=== PATIENT | male | born 1950 | race Caucasian/White ===

== ENCOUNTER 2016-10-08 23:48 | Emergency (ER) | payer MEDICARE, OTHER ==
[2016-10-09 00:11] LABS: HEMOGLOBIN 15.1 gm/dl (14.0-17.5); RED BLOOD COUNT 4.52 M/UL (4.20-5.50); WHITE BLOOD COUNT 10.2 K/UL (4.5-11.0)
[2016-10-09 01:00] LABS: BUN/CREATININE RATIO 16 (0-10)
== END 2016-10-09 03:40 | disposition home or self-care (01) ==
LOC: ER1 23:48
PROVIDERS: Emergency Medicine
DX: R13.10 Dysphagia, unspecified (principal); R06.2 Wheezing; R06.02 Shortness of breath; I11.0 Hypertensive heart disease with heart failure; I50.9 Heart failure, unspecified; J44.9 Chronic obstructive pulmonary disease, unspecified; F17.200 Nicotine dependence, unspecified, uncomplicated; Z79.899 Other long term (current) drug therapy
CPT/HCPCS: 36415; 36600; 71010; 80053; 82550; 82553; 82803; 83690; 83874; 83880; 84484; 85025; 93005; 96374; 99285; J1100

== ENCOUNTER 2021-06-30 19:54 | Inpatient (IN) | payer MEDICARE, OTHER ==
[~2021-06-30] VITALS: Ht 188 cm; Wt 106.6 kg
[2021-06-30 20:09] LABS: HEMOGLOBIN 12.5 gm/dl (14.0-17.5); RED BLOOD COUNT 3.72 M/UL (4.20-5.50)
[2021-06-30 20:35] LABS: BUN/CREATININE RATIO 20 (0-10)
[2021-07-01] MEDS ORDERED: ALBUTEROL2.5 MG/3 M INH (10:05)
[2021-07-01] MEDS ORDERED: AMLODIPINE BESY10 MG PO (10:06)
[2021-07-01] MEDS ORDERED: BACLOFEN20 MG PO (10:06)
[2021-07-01] MEDS ORDERED: DICLOFENAC SODI75 MG PO (10:07)
[2021-07-01] MEDS ORDERED: HYDROCODON-ACE1 EAC6 PO (10:08)
[2021-07-01] MEDS ORDERED: FAMOTIDINE20 MG PO (10:08)
[2021-07-01] MEDS ORDERED: LEVOTHYROXINE100 MCG PO (10:09)
[2021-07-01] MEDS ORDERED: ZESTORETIC 20-1 EACH PO (10:09)
[2021-07-01] MEDS ORDERED: VASCEPA1 GM PO (10:09)
[2021-07-01] MEDS ORDERED: LORATADINE10 MG PO (10:10)
[2021-07-01] MEDS ORDERED: METOPROLOL TART50 MG PO (10:10)
[2021-07-01] MEDS ORDERED: ROBAXIN 750 MG750 MG PO (10:10)
[2021-07-01] MEDS ORDERED: ASPIRIN325 MG PO (10:11)
[2021-07-01] MEDS ORDERED: PRAVASTATIN SOD20 MG PO (10:11)
[2021-07-01] MEDS ORDERED: MONTELUKAST SOD10 MG PO (10:11)
[2021-07-01] MEDS ORDERED: VITAMIN D21250 MCG PO (10:12)
[2021-07-01] MEDS ORDERED: SUCRALFATE1 GM PO (10:12)
[2021-07-01] MEDS ORDERED: LIPOFLAVOVIT PO (10:13)
[2021-07-01 11:24] LABS: HEMOGLOBIN 12.6 gm/dl (14.0-17.5); RED BLOOD COUNT 3.75 M/UL (4.20-5.50); WHITE BLOOD COUNT 10.9 K/UL (4.5-11.0)
[2021-07-02 00:44] LABS: HEMOGLOBIN 10.8 gm/dl (14.0-17.5)
[2021-07-02 00:45] LABS: RED BLOOD COUNT 3.35 M/UL (4.20-5.50); WHITE BLOOD COUNT 14.6 K/UL (4.5-11.0)
[2021-07-02 06:54] LABS: RED BLOOD COUNT 3.33 M/UL (4.20-5.50); WHITE BLOOD COUNT 11.6 K/UL (4.5-11.0)
[2021-07-03 03:31] LABS: HEMOGLOBIN 11.1 gm/dl (14.0-17.5); RED BLOOD COUNT 3.36 M/UL (4.20-5.50); WHITE BLOOD COUNT 12.5 K/UL (4.5-11.0)
[2021-07-04 03:28] LABS: HEMOGLOBIN 10.8 gm/dl (14.0-17.5); RED BLOOD COUNT 3.28 M/UL (4.20-5.50); WHITE BLOOD COUNT 11.7 K/UL (4.5-11.0)
[2021-07-05 06:30] LABS: HEMOGLOBIN 10.4 gm/dl (14.0-17.5); RED BLOOD COUNT 3.18 M/UL (4.20-5.50); WHITE BLOOD COUNT 12.6 K/UL (4.5-11.0)
[2021-07-06 07:33] LABS: HEMOGLOBIN 10.5 gm/dl (14.0-17.5); RED BLOOD COUNT 3.21 M/UL (4.20-5.50)
[2021-07-07 03:23] LABS: HEMOGLOBIN 10.4 gm/dl (14.0-17.5); RED BLOOD COUNT 3.18 M/UL (4.20-5.50); WHITE BLOOD COUNT 13.1 K/UL (4.5-11.0)
[2021-07-08] MEDS ORDERED: VITAMIN B-1100 M1 PO (09:37)
[2021-07-08] MEDS ORDERED: PROTONIX 40 MG40 M1 PO (09:37)
[2021-07-08] MEDS ORDERED: BACLOFEN20 MG PO (09:37)
[2021-07-08] MEDS ORDERED: ASPIRIN EC81 MG PO (11:36)
[2021-07-08] MEDS ORDERED: ENOXAPARIN40 MG/0.4 SC (11:36)
[2021-07-08] MEDS ORDERED: ROXICODONE TAB 55 MG PO (11:36)
== END 2021-07-08 21:16 | DRG 492 ==
LOC: ER1 22:44 → CDU 07-01 03:27 → M/S 07-01 03:27
PROVIDERS: Emergency Medicine; Orthopaedic Surgery; ADMIT Internal Medicine
PROC: 0QSG06Z Reposition Right Tibia with Intramedullary Internal Fixation Device, Open Approach (ICD-10-PCS; 2021-07-01)
PROC: B24BZZ4 Ultrasonography of Heart with Aorta, Transesophageal (ICD-10-PCS; 2021-07-01)
PROC: HZ2ZZZZ Detoxification Services for Substance Abuse Treatment (ICD-10-PCS; principal; 2021-07-01 08:30)
DX: S82.301A Unspecified fracture of lower end of right tibia, initial encounter for closed fracture (principal); J18.9 Pneumonia, unspecified organism; G93.41 Metabolic encephalopathy; S42.201A Unspecified fracture of upper end of right humerus, initial encounter for closed fracture; J44.0 Chronic obstructive pulmonary disease with (acute) lower respiratory infection; N17.9 Acute kidney failure, unspecified; E87.1 Hypo-osmolality and hyponatremia; F10.239 Alcohol dependence with withdrawal, unspecified; I13.0 Hypertensive heart and chronic kidney disease with heart failure and stage 1 through stage 4 chronic kidney disease, or unspecified chronic kidney disease; Z20.822 Contact with and (suspected) exposure to COVID-19; S82.831A Other fracture of upper and lower end of right fibula, initial encounter for closed fracture; N18.30 Chronic kidney disease, stage 3 unspecified; F17.210 Nicotine dependence, cigarettes, uncomplicated; R63.1 Polydipsia; E03.9 Hypothyroidism, unspecified; I50.9 Heart failure, unspecified; M81.0 Age-related osteoporosis without current pathological fracture; R73.03 Prediabetes; I25.10 Atherosclerotic heart disease of native coronary artery without angina pectoris; H91.90 Unspecified hearing loss, unspecified ear; K21.9 Gastro-esophageal reflux disease without esophagitis; R53.83 Other fatigue; N28.9 Disorder of kidney and ureter, unspecified; W01.0XXA Fall on same level from slipping, tripping and stumbling without subsequent striking against object, initial encounter; Z79.899 Other long term (current) drug therapy; Z82.49 Family history of ischemic heart disease and other diseases of the circulatory system; Z79.82 Long term (current) use of aspirin; Z79.52 Long term (current) use of systemic steroids; Z98.49 Cataract extraction status, unspecified eye
CPT/HCPCS: ECHO; 36415; 36600; 70450; 71045; 72170; 73030; 73552; 73590; 73700; 76000; 80048; 80053; 80307; 81001; 82140; 82436; 82550; 82553; 82570; 82803; 82962; 83605; 83735; 83874; 83880; 84100; 84133; 84156; 84300; 84439; 84443; 84484; 84550; 85025; 85027; 85610; 86140; 86850; 86900; 86901; 87040; 93005; 93306; 94640; 94664; 94760; 96374; 96375; 97110-GP-CQ; 97162; 97166; 97530; 97530-GP-CQ; 99285; C1713; G0480; J0456; J0690; J0696; J1100; J1335; J1650; J2001; J2060; J2310; J2405; J2704; J2795; J2930; J3010; J3486; J7030; J7120; U0002

== ENCOUNTER → 2022-01-14 | Outpatient (CLI) | payer MEDICARE, OTHER ==
[~2022-01-14] MED LIST: ALBUTEROL2.5 MG/3 M INH; AMITRIPTYLINE H25 MG PO; AMLODIPINE BESY10 MG PO; ASPIRIN 325MG325 MG PO; ASPIRIN EC81 MG PO; ASPIRIN325 MG PO; BACLOFEN20 MG PO; CEPHALEXIN500 MG PO; DICLOFENAC SODI75 MG PO; ENOXAPARIN40 MG/0.4 SC; FAMOTIDINE20 MG PO; HYDRALAZINE HCL10 MG PO; HYDROCODON-ACE1 EAC4 PO; HYDROCODON-ACE1 EAC6 PO; LEVOTHYROXINE100 MCG PO; LIPOFLAVOVIT PO; LORATADINE10 MG PO; METOPROLOL TART50 MG PO; MONTELUKAST SOD10 MG PO; PRAVASTATIN SOD20 MG PO; PROTONIX 40 MG40 M1 PO; ROBAXIN 750 MG750 MG PO; ROXICODONE TAB 55 MG PO; SUCRALFATE1 GM PO; VASCEPA1 GM PO; VITAMIN B-1100 M1 PO; VITAMIN D21250 MCG PO; ZESTORETIC 20-1 EACH PO
== END ==
LOC: US 14:39
DX: Z01.810 Encounter for preprocedural cardiovascular examination (principal)
CPT/HCPCS: 93926

== ENCOUNTER → 2022-01-17 | Outpatient (CLI) | payer MEDICARE, OTHER ==
[2022-01-17 09:37] LABS: HEMOGLOBIN 15.6 gm/dl (14.0-17.5); RED BLOOD COUNT 4.7 M/UL (4.20-5.50); WHITE BLOOD COUNT 6.9 K/UL (4.5-11.0)
[2022-01-18 06:11] LABS: HEMOGLOBIN A1C 5.8 % (4.8-5.6)
== END ==
LOC: OPSV2 08:48
PROVIDERS: Orthopaedic Surgery
DX: T84.622A Infection and inflammatory reaction due to internal fixation device of right tibia, initial encounter (principal); R94.31 Abnormal electrocardiogram [ECG] [EKG]
CPT/HCPCS: 36415; 71046; 80053; 83036; 85025; 85652; 86140; 93005